=== PATIENT | male | born 1970 | race Caucasian/White ===

== ENCOUNTER 2016-10-17 07:52 | Emergency (ER) | payer MEDICARE, OTHER ==
[~2016-10-17] VITALS: Ht 172.7 cm; Wt 82.1 kg
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
[2016-10-17] MEDS ORDERED: IBUPROFEN 400 MG TABLET ONE ×2 (08:27→08:29)
[2016-10-17] MEDS ORDERED: IBUPROFEN 400 MG TABLET PO ONE (08:30)
--- NOTE | 2016-10-17 09:21 | NUR ---
Patient discharged to home in stable condition. Written and verbal after care instructions given. Patient verbalizes understanding of instruction.
[2016-10-17 09:22] VITALS: BP 140/92
== END 2016-10-17 09:24 | disposition home or self-care (01) ==
LOC: ER 07:53
DX: S46.812A Strain of other muscles, fascia and tendons at shoulder and upper arm level, left arm, initial encounter (principal); I10 Essential (primary) hypertension; Y04.0XXA Assault by unarmed brawl or fight, initial encounter; Y92.89 Other specified places as the place of occurrence of the external cause; Y93.89 Activity, other specified; Y99.8 Other external cause status
CPT/HCPCS: 73030; 99284; A4606; Z7610